=== PATIENT | female | born 1955 | race American Indian/Alaskan Native ===

== ENCOUNTER → 2018-12-07 | Day surgery (SDC) | payer OTHER ==
[2015-09-06 09:48] VITALS: BP 129/68
[~2018-12-07] MED LIST: CALCIUM CITRATE1 TA6 PO; CHANTIX STARTER1 TAB; GOOD SENSE ASPI81 M1 PO; LIP PO; LISINOPRIL5 MG PO; LORAZEPAM0.5 MG PO; NORCO 325 MG-51 TA1 PO; PREDNISONE20 MG PO; VITAMIN D31000 IU PO
== END ==
LOC: MSO 08:59
DX: D12.8 Benign neoplasm of rectum (principal); K63.5 Polyp of colon; K31.89 Other diseases of stomach and duodenum; K21.0 Gastro-esophageal reflux disease with esophagitis; K29.70 Gastritis, unspecified, without bleeding; K29.80 Duodenitis without bleeding; K92.1 Melena; K62.9 Disease of anus and rectum, unspecified; Z86.010 Personal history of colon polyps
CPT/HCPCS: 00813; J2704; J7120

== ENCOUNTER 2018-12-29 09:22 | Emergency (ER) | payer OTHER ==
[~2018-12-29] VITALS: Ht 162.6 cm; Wt 63.6 kg
[2018-12-29] MEDS ORDERED: BENTYL 20MG20 MG/TAB PO (09:41)
[2018-12-29 10:32] VITALS: BP 146/76
== END 2018-12-29 10:33 | disposition home or self-care (01) ==
LOC: ED 09:22
DX: T18.9XXA Foreign body of alimentary tract, part unspecified, initial encounter (principal); I10 Essential (primary) hypertension; K21.9 Gastro-esophageal reflux disease without esophagitis; I51.9 Heart disease, unspecified; C20 Malignant neoplasm of rectum; F17.210 Nicotine dependence, cigarettes, uncomplicated; Z79.82 Long term (current) use of aspirin; Z95.5 Presence of coronary angioplasty implant and graft

== ENCOUNTER → 2019-03-23 | Outpatient (CLI) | payer OTHER ==
[~2019-03-23] MED LIST changes: +BENTYL 20MG20 MG/TAB PO
[2019-03-23 11:04] LABS: EOS # 0.2 (0.04-0.40); EOS % 2.7 % (1.0-5.0); HEMATOCRIT 32.8 % (37.0-47.0); HEMOGLOBIN 10.7 g/dL (12.5-16.0); LYMPH# 1.5 (1.50-4.00); MEAN CELL VOLUME 96 fl (78-100); MEAN CORPUSCULAR HEMOGLOBIN 31 pg (27-31); MEAN CORPUSCULAR HGB CONC 33 g/dL (33-37); MEAN PLATELET VOLUME 11.2 fl (7.4-10.4); MONO # 0.6 (0.20-0.80); NEU # 4.4 (1.40-6.50); PLATELET COUNT 159 K/mm3 (130-400); RED BLOOD COUNT 3.42 M/mm3 (4.10-5.30); RED CELL DISTRIBUTION WIDTH 12.1 % (11.5-14.5); WHITE BLOOD COUNT 6.7 K/mm3 (4.8-10.8)
[2019-03-23 11:12] LABS: ALBUMIN 3.7 g/dL (3.4-4.8)
[2019-03-23 11:13] LABS: POTASSIUM 4.4 mmol/L (3.5-5.1)
[2019-03-23 11:14] LABS: CALCIUM 9.3 mg/dL (8.3-10.5)
[2019-03-23 11:15] LABS: TOTAL PROTEIN 6.2 g/dL (6.2-8.1)
[2019-03-23 11:17] LABS: TOTAL BILIRUBIN 0.8 mg/dL (0.2-1.2)
== END ==
LOC: LAB 10:52
PROVIDERS: Internal Medicine Medical Oncology
DX: C20 Malignant neoplasm of rectum (principal)

== ENCOUNTER → 2019-07-18 | Outpatient (CLI) | payer OTHER ==
[2019-07-18 15:38] LABS: POTASSIUM 4.1 mmol/L (3.5-5.1)
[2019-07-18 15:39] LABS: CALCIUM 8.9 mg/dL (8.3-10.5)
== END ==
LOC: LAB 15:01
PROVIDERS: Internal Medicine Medical Oncology
DX: C20 Malignant neoplasm of rectum (principal)

== ENCOUNTER → 2019-07-25 | Outpatient (CLI) | payer OTHER ==
[2019-07-25 14:27] LABS: EOS # 0.1 (0.04-0.40); EOS % 2.1 % (1.0-5.0); HEMATOCRIT 28.1 % (37.0-47.0); HEMOGLOBIN 8.7 g/dL (12.5-16.0); LYMPH# 1.1 (1.50-4.00); MEAN CELL VOLUME 100 fl (78-100); MEAN CORPUSCULAR HEMOGLOBIN 31 pg (27-31); MEAN CORPUSCULAR HGB CONC 31 g/dL (33-37); MEAN PLATELET VOLUME 10.9 fl (7.4-10.4); MONO # 0.6 (0.20-0.80); NEU # 3.8 (1.40-6.50); PLATELET COUNT 184 K/mm3 (130-400); RED BLOOD COUNT 2.81 M/mm3 (4.10-5.30); RED CELL DISTRIBUTION WIDTH 14.1 % (11.5-14.5); WHITE BLOOD COUNT 5.7 K/mm3 (4.8-10.8)
[2019-07-25 14:35] LABS: ALBUMIN 3.7 g/dL (3.4-4.8)
[2019-07-25 14:36] LABS: POTASSIUM 3.7 mmol/L (3.5-5.1)
[2019-07-25 14:40] LABS: TOTAL BILIRUBIN 0.9 mg/dL (0.2-1.2)
== END ==
LOC: LAB 14:19
PROVIDERS: Internal Medicine Medical Oncology
DX: C20 Malignant neoplasm of rectum (principal)

== ENCOUNTER → 2019-08-05 | Outpatient (CLI) | payer OTHER ==
[2019-08-05 16:26] LABS: CALCIUM 8.6 mg/dL (8.3-10.5)
== END ==
LOC: LAB 15:47
PROVIDERS: Internal Medicine
DX: C20 Malignant neoplasm of rectum (principal)

== ENCOUNTER → 2019-08-11 | Outpatient (CLI) | payer OTHER ==
[2019-08-11 14:36] LABS: POTASSIUM 4.2 mmol/L (3.5-5.1)
[2019-08-11 14:37] LABS: CALCIUM 8.9 mg/dL (8.3-10.5)
== END ==
LOC: LAB 14:06
PROVIDERS: Internal Medicine Medical Oncology
DX: C20 Malignant neoplasm of rectum (principal)

== ENCOUNTER → 2019-08-24 | Outpatient (CLI) | payer OTHER ==
[2019-08-24 15:52] LABS: EOS # 0.1 (0.04-0.40); EOS % 2.4 % (1.0-5.0); MEAN CELL VOLUME 100 fl (78-100); MEAN CORPUSCULAR HEMOGLOBIN 30 pg (27-31); MEAN CORPUSCULAR HGB CONC 30 g/dL (33-37); MEAN PLATELET VOLUME 11.4 fl (7.4-10.4); MONO # 0.5 (0.20-0.80); NEU # 4.1 (1.40-6.50); PLATELET COUNT 188 K/mm3 (130-400); RED BLOOD COUNT 2.99 M/mm3 (4.10-5.30); WHITE BLOOD COUNT 5.8 K/mm3 (4.8-10.8)
[2019-08-24 16:15] LABS: POTASSIUM 3.9 mmol/L (3.5-5.1)
[2019-08-24 16:16] LABS: CALCIUM 9.2 mg/dL (8.3-10.5)
== END ==
LOC: LAB 15:32
PROVIDERS: Internal Medicine Medical Oncology
DX: C20 Malignant neoplasm of rectum (principal)

== ENCOUNTER → 2019-11-23 | Outpatient (CLI) | payer OTHER ==
[2019-11-23 13:45] LABS: HEMATOCRIT 27.9 % (37.0-47.0); HEMOGLOBIN 8.2 g/dL (12.5-16.0); MEAN CELL VOLUME 95 fl (78-100); MEAN CORPUSCULAR HEMOGLOBIN 28 pg (27-31); MEAN PLATELET VOLUME 10.9 fl (7.4-10.4); PLATELET COUNT 200 K/mm3 (130-400); RED BLOOD COUNT 2.94 M/mm3 (4.10-5.30); RED CELL DISTRIBUTION WIDTH 14.9 % (11.5-14.5); WHITE BLOOD COUNT 4.3 K/mm3 (4.8-10.8)
[2019-11-23 13:54] LABS: MEAN CORPUSCULAR HGB CONC 29 g/dL (33-37)
[2019-11-23 13:56] LABS: ALBUMIN 3.6 g/dL (3.4-4.8); POTASSIUM 4.3 mmol/L (3.5-5.1)
[2019-11-23 13:57] LABS: CALCIUM 8.9 mg/dL (8.3-10.5)
[2019-11-23 13:58] LABS: TOTAL PROTEIN 5.7 g/dL (6.2-8.1)
[2019-11-23 14:00] LABS: LYMPHOCYTE 15 % (20-51); MONOCYTE 8 % (3-10); NEUTROPHILS 73 % (42-75); TOTAL BILIRUBIN 0.5 mg/dL (0.2-1.2)
== END ==
LOC: LAB 13:34
PROVIDERS: Internal Medicine Medical Oncology
DX: C20 Malignant neoplasm of rectum (principal)

== ENCOUNTER → 2020-05-23 | Outpatient (CLI) | payer OTHER ==
[2020-05-23 14:43] LABS: EOS # 0.1 (0.04-0.40); EOS % 1.4 % (1.0-5.0); HEMOGLOBIN 11.4 g/dL (12.5-16.0); LYMPH# 0.8 (1.50-4.00); MEAN CELL VOLUME 95 fl (78-100); MEAN CORPUSCULAR HEMOGLOBIN 30 pg (27-31); MEAN CORPUSCULAR HGB CONC 32 g/dL (33-37); MEAN PLATELET VOLUME 10.7 fl (7.4-10.4); MONO # 0.6 (0.20-0.80); NEU # 4.1 (1.40-6.50); PLATELET COUNT 211 K/mm3 (130-400); RED BLOOD COUNT 3.79 M/mm3 (4.10-5.30); RED CELL DISTRIBUTION WIDTH 14.8 % (11.5-14.5); WHITE BLOOD COUNT 5.6 K/mm3 (4.8-10.8)
[2020-05-23 14:47] LABS: ALBUMIN 4.3 g/dL (3.4-4.8); POTASSIUM 4.6 mmol/L (3.5-5.1)
[2020-05-23 14:48] LABS: CALCIUM 9.1 mg/dL (8.3-10.5)
[2020-05-23 14:49] LABS: TOTAL PROTEIN 6.8 g/dL (6.2-8.1)
[2020-05-23 14:51] LABS: TOTAL BILIRUBIN 0.5 mg/dL (0.2-1.2)
== END ==
LOC: LAB 14:17
PROVIDERS: Internal Medicine Medical Oncology
DX: C20 Malignant neoplasm of rectum (principal)

== ENCOUNTER → 2020-09-03 | Outpatient (CLI) | payer OTHER | LOC: LAB 12:01 | DX: Z20.828 Contact with and (suspected) exposure to other viral communicable diseases (principal) ==

== ENCOUNTER → 2020-09-06 | Day surgery (SDC) | payer OTHER | LOC: MSO 09:07 | DX: Z12.11 Encounter for screening for malignant neoplasm of colon (principal); K57.30 Diverticulosis of large intestine without perforation or abscess without bleeding; Z85.048 Personal history of other malignant neoplasm of rectum, rectosigmoid junction, and anus; Z79.82 Long term (current) use of aspirin; Z88.5 Allergy status to narcotic agent; Z88.1 Allergy status to other antibiotic agents; I25.10 Atherosclerotic heart disease of native coronary artery without angina pectoris; F32.9 Major depressive disorder, single episode, unspecified | CPT/HCPCS: G0105; 00812; J1644; J2704; J7120 ==

== ENCOUNTER 2020-11-29 14:40 | Emergency (ER) | payer OTHER ==
[2020-11-29 14:48] VITALS: BP 172/87
== END 2020-11-29 15:24 | disposition home or self-care (01) ==
LOC: ED 14:40
DX: S93.401A Sprain of unspecified ligament of right ankle, initial encounter (principal); E78.5 Hyperlipidemia, unspecified; F17.210 Nicotine dependence, cigarettes, uncomplicated; Z95.9 Presence of cardiac and vascular implant and graft, unspecified; Z88.6 Allergy status to analgesic agent; Z79.82 Long term (current) use of aspirin; X50.1XXA Overexertion from prolonged static or awkward postures, initial encounter; Y92.009 Unspecified place in unspecified non-institutional (private) residence as the place of occurrence of the external cause

== ENCOUNTER → 2022-09-24 | Outpatient (CLI) | payer MEDICARE, OTHER | LOC: LAB 16:04 | DX: Z01.812 Encounter for preprocedural laboratory examination (principal); C20 Malignant neoplasm of rectum; C77.0 Secondary and unspecified malignant neoplasm of lymph nodes of head, face and neck; I10 Essential (primary) hypertension; Z85.528 Personal history of other malignant neoplasm of kidney ==

== ENCOUNTER 2023-05-15 08:55 | Outpatient (RCR) | payer MEDICARE, OTHER ==
[~2023-05-15] VITALS: Ht 162.6 cm; Wt 63.6 kg
[2023-05-15 09:06] VITALS: BP 136/74
[2023-05-15 09:28] LABS: HEMATOCRIT 33.8 % (37.0-47.0); HEMOGLOBIN 10.7 g/dL (12.5-16.0); MEAN CELL VOLUME 100 fl (78-100); MEAN CORPUSCULAR HEMOGLOBIN 32 pg (27-31); MEAN CORPUSCULAR HGB CONC 32 g/dL (33-37); MEAN PLATELET VOLUME 9.4 fl (7.4-10.4); PLATELET COUNT 255 K/mm3 (130-400); RED BLOOD COUNT 3.37 M/mm3 (4.10-5.30); WHITE BLOOD COUNT 5.1 K/mm3 (4.8-10.8)
[2023-05-15 09:57] LABS: ALBUMIN 3.9 g/dL (3.4-4.8); POTASSIUM 4.5 mmol/L (3.5-5.1)
[2023-05-15 09:59] LABS: CALCIUM 8.9 mg/dL (8.3-10.5)
[2023-05-15 10:00] LABS: TOTAL PROTEIN 6.4 g/dL (6.2-8.1)
[2023-05-15 10:02] LABS: TOTAL BILIRUBIN 0.7 mg/dL (0.2-1.2)
[2023-05-15 11:09] LABS: LYMPHOCYTE 10 % (20-51); MONOCYTE 8 % (3-10); NEUTROPHILS 80 % (42-75)
== END 2023-05-21 | disposition home or self-care (01) ==
LOC: AMSURD
PROVIDERS: Internal Medicine Medical Oncology
DX: C34.12 Malignant neoplasm of upper lobe, left bronchus or lung (principal)
CPT/HCPCS: J1644

== ENCOUNTER → 2023-08-21 | Outpatient (CLI) | payer MEDICARE, OTHER ==
[2023-08-21 09:25] LABS: BASO # 0.03 K/mm3 (0.02-0.10); EOS # 0.09 K/mm3 (0.04-0.40); EOS % 1.6 % (1.0-5.0); HEMATOCRIT 35.7 % (37.0-47.0); HEMOGLOBIN 11.8 g/dL (12.5-16.0); LYMPH# 0.79 K/mm3 (1.50-4.00); MEAN CELL VOLUME 97 fl (78-100); MEAN CORPUSCULAR HEMOGLOBIN 32 pg (27-31); MEAN CORPUSCULAR HGB CONC 33 g/dL (33-37); MEAN PLATELET VOLUME 9.9 fl (7.4-10.4); MONO # 0.77 K/mm3 (0.20-0.80); NEU # 4.05 K/mm3 (1.40-6.50); PLATELET COUNT 254 K/mm3 (130-400); RED BLOOD COUNT 3.69 M/mm3 (4.10-5.30); RED CELL DISTRIBUTION WIDTH 13.8 % (11.5-14.5); WHITE BLOOD COUNT 5.8 K/mm3 (4.8-10.8)
[2023-08-21 09:38] LABS: ALBUMIN 4.2 g/dL (3.4-4.8)
[2023-08-21 09:40] LABS: CALCIUM 9.2 mg/dL (8.3-10.5)
[2023-08-21 09:41] LABS: TOTAL PROTEIN 6.7 g/dL (6.2-8.1)
[2023-08-21 09:43] LABS: TOTAL BILIRUBIN 1.1 mg/dL (0.2-1.2)
== END ==
LOC: LAB 08:56
PROVIDERS: Internal Medicine
DX: C34.12 Malignant neoplasm of upper lobe, left bronchus or lung (principal)

== ENCOUNTER 2023-09-18 09:04 | Outpatient (RCR) | payer MEDICARE, OTHER ==
[~2023-09-18] VITALS: Ht 162.6 cm; Wt 63.6 kg
[2023-09-18 09:40] VITALS: BP 121/70
== END 2023-09-20 | disposition still patient (30) ==
LOC: AMSURD
DX: C34.12 Malignant neoplasm of upper lobe, left bronchus or lung (principal)
CPT/HCPCS: J1644

== ENCOUNTER → 2023-09-18 | Outpatient (CLI) | payer MEDICARE, OTHER ==
[2023-09-18 13:35] LABS: HEMATOCRIT 34.8 % (37.0-47.0); HEMOGLOBIN 11.5 g/dL (12.5-16.0); MEAN CELL VOLUME 96 fl (78-100); MEAN CORPUSCULAR HEMOGLOBIN 32 pg (27-31); MEAN CORPUSCULAR HGB CONC 33 g/dL (33-37); MEAN PLATELET VOLUME 10.8 fl (7.4-10.4); PLATELET COUNT 212 K/mm3 (130-400); RED BLOOD COUNT 3.63 M/mm3 (4.10-5.30); RED CELL DISTRIBUTION WIDTH 12.9 % (11.5-14.5); WHITE BLOOD COUNT 3.9 K/mm3 (4.8-10.8)
[2023-09-18 13:40] LABS: CALCIUM 8.9 mg/dL (8.3-10.5)
[2023-09-18 13:41] LABS: TOTAL PROTEIN 6.2 g/dL (6.2-8.1)
[2023-09-18 13:43] LABS: TOTAL BILIRUBIN 0.7 mg/dL (0.2-1.2)
[2023-09-18 16:44] LABS: BAND 1 % (0-10)
[2023-09-18 16:46] LABS: LYMPHOCYTE 16 % (20-51); MONOCYTE 13 % (3-10); NEUTROPHILS 68 % (42-75)
[2023-09-18 16:48] LABS: OVALOCYTES 1+; SCHISTOCYTES 1+
== END ==
LOC: LAB 09:03
PROVIDERS: Internal Medicine Medical Oncology
DX: C34.12 Malignant neoplasm of upper lobe, left bronchus or lung (principal)

== ENCOUNTER 2023-09-26 20:58 | Emergency (ER) | payer MEDICARE, OTHER ==
[~2023-09-26] VITALS: Wt 59.1 kg
[2023-09-26] MEDS ORDERED: WELLBUTRIN XL300 M1 PO (21:16)
[2023-09-26] MEDS ORDERED: PANTOPRAZOLE SO40 MG PO ×2 (21:16→23:09)
[2023-09-26] MEDS ORDERED: VITAMIN C500 M6 PO (21:20)
[2023-09-26] MEDS ORDERED: OSTEO BI-FLEX1 EAC3 PO (21:21)
[2023-09-26] MEDS ORDERED: VITAMIN D250 MC1 PO (21:29)
[2023-09-26] MEDS ORDERED: CELECOXIB200 M1 PO (21:32)
[2023-09-26 23:26] VITALS: BP 151/86
== END 2023-09-26 23:26 | disposition home or self-care (01) ==
LOC: ED 20:58
DX: K21.9 Gastro-esophageal reflux disease without esophagitis (principal); H65.90 Unspecified nonsuppurative otitis media, unspecified ear; I10 Essential (primary) hypertension

== ENCOUNTER → 2023-09-28 | Outpatient (CLI) | payer MEDICARE, OTHER ==
[~2023-09-28] MED LIST changes: +CELECOXIB200 M1 PO; +OSTEO BI-FLEX1 EAC3 PO; +PANTOPRAZOLE SO40 MG PO; +VITAMIN C500 M6 PO; +VITAMIN D250 MC1 PO; +WELLBUTRIN XL300 M1 PO
== END ==
LOC: AMSURD 16:30
DX: K21.9 Gastro-esophageal reflux disease without esophagitis (principal)

== ENCOUNTER 2023-10-16 14:22 | Outpatient (RCR) | payer MEDICARE, OTHER ==
[~2023-10-16] VITALS: Wt 59.1 kg
== END 2023-10-21 | disposition home or self-care (01) ==
LOC: AMSURD
DX: C34.12 Malignant neoplasm of upper lobe, left bronchus or lung (principal)
CPT/HCPCS: J1644

== ENCOUNTER → 2023-10-30 | Outpatient (CLI) | payer MEDICARE, OTHER ==
[2023-10-16 14:57] LABS: HEMATOCRIT 29.5 % (37.0-47.0); HEMOGLOBIN 9.5 g/dL (12.5-16.0); MEAN CELL VOLUME 98 fl (78-100); MEAN CORPUSCULAR HEMOGLOBIN 32 pg (27-31); MEAN CORPUSCULAR HGB CONC 32 g/dL (33-37); MEAN PLATELET VOLUME 10.2 fl (7.4-10.4); PLATELET COUNT 244 K/mm3 (130-400); RED BLOOD COUNT 3.01 M/mm3 (4.10-5.30); RED CELL DISTRIBUTION WIDTH 13.8 % (11.5-14.5); WHITE BLOOD COUNT 4.5 K/mm3 (4.8-10.8)
[2023-10-16 15:06] LABS: CALCIUM 9.4 mg/dL (8.3-10.5)
[2023-10-16 15:07] LABS: TOTAL PROTEIN 6.2 g/dL (6.2-8.1)
[2023-10-16 15:32] LABS: LYMPHOCYTE 13 % (20-51); MONOCYTE 16 % (3-10); NEUTROPHILS 68 % (42-75)
[2023-10-16 15:33] LABS: OVALOCYTES 1+; SCHISTOCYTES 1+
[2023-10-16 15:47] LABS: TOTAL BILIRUBIN 0.4 mg/dL (0.2-1.2)
[2023-10-30 15:44] LABS: HEMOGLOBIN 10.5 g/dL (12.5-16.0); MEAN CELL VOLUME 101 fl (78-100); MEAN CORPUSCULAR HEMOGLOBIN 32 pg (27-31); MEAN CORPUSCULAR HGB CONC 32 g/dL (33-37); MEAN PLATELET VOLUME 11.1 fl (7.4-10.4); PLATELET COUNT 265 K/mm3 (130-400); RED BLOOD COUNT 3.28 M/mm3 (4.10-5.30); RED CELL DISTRIBUTION WIDTH 14.3 % (11.5-14.5); WHITE BLOOD COUNT 4.5 K/mm3 (4.8-10.8)
[2023-10-30 15:48] LABS: ALBUMIN 4.2 g/dL (3.4-4.8)
[2023-10-30 15:50] LABS: CALCIUM 9.2 mg/dL (8.3-10.5)
[2023-10-30 15:51] LABS: TOTAL PROTEIN 6.4 g/dL (6.2-8.1)
[2023-10-30 15:53] LABS: TOTAL BILIRUBIN 0.6 mg/dL (0.2-1.2)
[2023-10-30 16:24] LABS: LYMPHOCYTE 12 % (20-51); MONOCYTE 12 % (3-10); NEUTROPHILS 73 % (42-75)
[2023-10-30 16:26] LABS: HYPOCHROMIA 1+
[2023-10-30 16:27] LABS: OVALOCYTES 1+
== END ==
LOC: LAB 12:05
PROVIDERS: Internal Medicine
DX: C34.12 Malignant neoplasm of upper lobe, left bronchus or lung (principal)

== ENCOUNTER 2023-11-13 09:03 | Outpatient (RCR) | payer MEDICARE, OTHER ==
[2023-10-30 09:16] VITALS: BP 146/74
[~2023-11-13] VITALS: Wt 59.1 kg
== END 2023-11-19 | disposition home or self-care (01) ==
LOC: AMSURD
DX: C34.12 Malignant neoplasm of upper lobe, left bronchus or lung (principal)
CPT/HCPCS: J1644

== ENCOUNTER → 2023-11-13 | Outpatient (CLI) | payer MEDICARE, OTHER ==
[2023-11-13 10:20] LABS: ALBUMIN 4.1 g/dL (3.4-4.8)
[2023-11-13 10:22] LABS: TOTAL PROTEIN 6.4 g/dL (6.2-8.1)
[2023-11-13 10:23] LABS: HEMATOCRIT 31.8 % (37.0-47.0); HEMOGLOBIN 10.1 g/dL (12.5-16.0); MEAN CELL VOLUME 101 fl (78-100); MEAN CORPUSCULAR HEMOGLOBIN 32 pg (27-31); MEAN CORPUSCULAR HGB CONC 32 g/dL (33-37); MEAN PLATELET VOLUME 10.8 fl (7.4-10.4); PLATELET COUNT 244 K/mm3 (130-400); RED BLOOD COUNT 3.15 M/mm3 (4.10-5.30); RED CELL DISTRIBUTION WIDTH 14.1 % (11.5-14.5); WHITE BLOOD COUNT 4.5 K/mm3 (4.8-10.8)
[2023-11-13 10:24] LABS: TOTAL BILIRUBIN 0.5 mg/dL (0.2-1.2)
[2023-11-13 11:26] LABS: LYMPHOCYTE 6 % (20-51); MONOCYTE 12 % (3-10); NEUTROPHILS 79 % (42-75)
[2023-11-13 11:28] LABS: HYPOCHROMIA 1+
[2023-11-13 11:30] LABS: OVALOCYTES 1+; SCHISTOCYTES 1+
== END ==
LOC: LAB 08:58
PROVIDERS: Internal Medicine
DX: C34.12 Malignant neoplasm of upper lobe, left bronchus or lung (principal)

== ENCOUNTER → 2023-12-11 | Outpatient (CLI) | payer MEDICARE, OTHER ==
[2023-12-11 14:22] LABS: HEMATOCRIT 28.7 % (37.0-47.0); HEMOGLOBIN 9.4 g/dL (12.5-16.0); MEAN PLATELET VOLUME 9.7 fl (7.4-10.4); RED BLOOD COUNT 2.88 M/mm3 (4.10-5.30); WHITE BLOOD COUNT 5.1 K/mm3 (4.8-10.8)
[2023-12-11 14:28] LABS: TOTAL PROTEIN 6.2 g/dL (6.2-8.1)
[2023-12-11 14:30] LABS: TOTAL BILIRUBIN 0.6 mg/dL (0.2-1.2)
== END ==
LOC: LAB 13:49
PROVIDERS: Internal Medicine
DX: C34.12 Malignant neoplasm of upper lobe, left bronchus or lung (principal)

== ENCOUNTER → 2024-01-22 | Outpatient (CLI) | payer MEDICARE, OTHER ==
[~2024-01-22] MED LIST changes: +WELLBUTRIN XL150 M2 PO
[2024-01-22 09:43] LABS: HEMATOCRIT 30.6 % (37.0-47.0); HEMOGLOBIN 10.4 g/dL (12.5-16.0); MEAN CELL VOLUME 95 fl (78-100); MEAN CORPUSCULAR HEMOGLOBIN 32 pg (27-31); MEAN CORPUSCULAR HGB CONC 34 g/dL (33-37); MEAN PLATELET VOLUME 9.5 fl (7.4-10.4); PLATELET COUNT 240 K/mm3 (130-400); RED BLOOD COUNT 3.21 M/mm3 (4.10-5.30); RED CELL DISTRIBUTION WIDTH 12.5 % (11.5-14.5); WHITE BLOOD COUNT 5.9 K/mm3 (4.8-10.8)
[2024-01-22 09:48] LABS: ALBUMIN 4.3 g/dL (3.4-4.8)
[2024-01-22 09:50] LABS: CALCIUM 9.5 mg/dL (8.3-10.5)
[2024-01-22 09:51] LABS: TOTAL PROTEIN 6.8 g/dL (6.2-8.1)
[2024-01-22 09:53] LABS: TOTAL BILIRUBIN 0.5 mg/dL (0.2-1.2)
[2024-01-22 10:00] LABS: LYMPHOCYTE 6 % (20-51); MONOCYTE 13 % (3-10); NEUTROPHILS 78 % (42-75)
[2024-01-22 10:01] LABS: HYPOCHROMIA 1+
== END ==
LOC: LAB 08:53
PROVIDERS: Internal Medicine
DX: C34.12 Malignant neoplasm of upper lobe, left bronchus or lung (principal)

== ENCOUNTER 2024-03-04 12:51 | Outpatient (RCR) | payer MEDICARE, OTHER ==
[2023-12-25 11:10] VITALS: BP 155/74
[~2024-03-04] VITALS: Wt 59.1 kg
[~2024-03-04 12:51] MED LIST changes: -24 HOUR NASAL16.9 ML NS; -EMREAL 2.5%-2.1 EACH TP; -IMFINZI500 MG/10 IV; -OSTEO BI-FLEX1 EAC1 PO; -TEMOVATE15 GM TP; -TRAMADOL 50 MG TAB PO; -VALIUM 5MG T5 MG/TAB PO
--- NOTE | 2024-03-04 13:30 | NUR ---
Pt arrived ambulatory for lab draw from port. Accessed left chest portacath with #19gu 1inch Chen needle using sterile technique. Brisk blood return noted. Flushed easily. Wasted 10ml blood, then alma 12ml blood for labs. Flushed with 20ml NS and 5ml Heplock. DC'd Chen needle. Covered site with bandaid. Pt left hospital ambulatory.
[2024-03-04] MEDS ORDERED: TEMOVATE15 GM TP (13:45)
[2024-03-04] MEDS ORDERED: IMFINZI500 MG/10 IV (13:47)
[2024-03-04] MEDS ORDERED: EMREAL 2.5%-2.1 EACH TP (13:50)
[2024-03-04] MEDS ORDERED: OSTEO BI-FLEX1 EAC1 PO (13:52)
[2024-03-04] MEDS ORDERED: TRAMADOL 50 MG TAB PO (13:55)
[2024-03-04] MEDS ORDERED: 24 HOUR NASAL16.9 ML NS (13:57)
[2024-03-04] MEDS ORDERED: VALIUM 5MG T5 MG/TAB PO (13:58)
== END 2024-03-20 | disposition home or self-care (01) ==
LOC: AMSURD
DX: C34.12 Malignant neoplasm of upper lobe, left bronchus or lung (principal)
CPT/HCPCS: J1644

== ENCOUNTER → 2024-03-04 | Outpatient (CLI) | payer MEDICARE, OTHER ==
[~2024-03-04] MED LIST changes: +24 HOUR NASAL16.9 ML NS; +EMREAL 2.5%-2.1 EACH TP; +IMFINZI500 MG/10 IV; +LISINOPRIL20 MG PO; -LISINOPRIL5 MG PO; +OSTEO BI-FLEX1 EAC1 PO; +TEMOVATE15 GM TP; +TRAMADOL 50 MG TAB PO; +VALIUM 5MG T5 MG/TAB PO
[2024-03-04 13:55] LABS: ALBUMIN 3.9 g/dL (3.4-4.8)
[2024-03-04 13:58] LABS: TOTAL PROTEIN 5.9 g/dL (6.2-8.1)
[2024-03-04 14:00] LABS: TOTAL BILIRUBIN 0.5 mg/dL (0.2-1.2)
[2024-03-04 14:35] LABS: HEMATOCRIT 26.8 % (37.0-47.0); HEMOGLOBIN 8.8 g/dL (12.5-16.0); MEAN CELL VOLUME 97 fl (78-100); MEAN CORPUSCULAR HEMOGLOBIN 32 pg (27-31); MEAN CORPUSCULAR HGB CONC 33 g/dL (33-37); MEAN PLATELET VOLUME 10.5 fl (7.4-10.4); PLATELET COUNT 208 K/mm3 (130-400); RED BLOOD COUNT 2.77 M/mm3 (4.10-5.30); RED CELL DISTRIBUTION WIDTH 13.5 % (11.5-14.5); WHITE BLOOD COUNT 4.6 K/mm3 (4.8-10.8)
[2024-03-04 15:08] LABS: LYMPHOCYTE 11 % (20-51); MONOCYTE 16 % (3-10); NEUTROPHILS 69 % (42-75)
[2024-03-04 15:09] LABS: HYPOCHROMIA 2+; OVALOCYTES 1+; SCHISTOCYTES 1+
[2024-03-04 22:49] LABS: HAPTOGLOBIN 185 mg/dL (63-273)
[2024-03-09 14:12] LABS: A/G RATIO (PEP) 1.7 (0.7-1.7); BETA GLOBULINS (PEP) 0.8 g/dL (0.7-1.3)
[2024-03-14 13:04] LABS: PROTEIN TOTAL FOR PEP 5.6
== END ==
LOC: LAB 13:02
PROVIDERS: Internal Medicine
DX: C34.12 Malignant neoplasm of upper lobe, left bronchus or lung (principal)

== ENCOUNTER → 2024-04-01 | Outpatient (CLI) | payer MEDICARE, OTHER ==
[~2024-04-01] MED LIST changes: +24 HOUR NASAL16.9 ML NS; +EMREAL 2.5%-2.1 EACH TP; +IMFINZI500 MG/10 IV; +OSTEO BI-FLEX1 EAC1 PO; +TEMOVATE15 GM TP; +TRAMADOL 50 MG TAB PO; +VALIUM 5MG T5 MG/TAB PO
[2024-04-01 17:12] LABS: HEMATOCRIT 29.2 % (37.0-47.0); HEMOGLOBIN 9.5 g/dL (12.5-16.0); MEAN CELL VOLUME 97 fl (78-100); MEAN CORPUSCULAR HEMOGLOBIN 32 pg (27-31); MEAN CORPUSCULAR HGB CONC 33 g/dL (33-37); MEAN PLATELET VOLUME 9.8 fl (7.4-10.4); PLATELET COUNT 238 K/mm3 (130-400); RED BLOOD COUNT 3.02 M/mm3 (4.10-5.30); RED CELL DISTRIBUTION WIDTH 13.6 % (11.5-14.5); WHITE BLOOD COUNT 8.6 K/mm3 (4.8-10.8)
[2024-04-01 17:23] LABS: TOTAL BILIRUBIN 0.6 mg/dL (0.2-1.2)
[2024-04-01 17:29] LABS: ALBUMIN 4.1 g/dL (3.4-4.8)
[2024-04-01 17:30] LABS: CALCIUM 9.3 mg/dL (8.3-10.5)
[2024-04-01 17:32] LABS: TOTAL PROTEIN 6.5 g/dL (6.2-8.1)
[2024-04-01 18:48] LABS: LYMPHOCYTE 6 % (20-51); MONOCYTE 6 % (3-10); NEUTROPHILS 87 % (42-75)
== END ==
LOC: LAB 12:56
PROVIDERS: Internal Medicine
DX: C34.12 Malignant neoplasm of upper lobe, left bronchus or lung (principal)

== ENCOUNTER → 2024-04-29 | Outpatient (CLI) | payer MEDICARE, OTHER ==
[~2024-04-29] VITALS: Wt 59.1 kg
[2024-04-29 10:00] LABS: HEMOGLOBIN 9.5 g/dL (12.5-16.0); MEAN CELL VOLUME 96 fl (78-100); MEAN CORPUSCULAR HEMOGLOBIN 30 pg (27-31); MEAN CORPUSCULAR HGB CONC 32 g/dL (33-37); MEAN PLATELET VOLUME 10.4 fl (7.4-10.4); PLATELET COUNT 241 K/mm3 (130-400); RED BLOOD COUNT 3.13 M/mm3 (4.10-5.30); WHITE BLOOD COUNT 4.3 K/mm3 (4.8-10.8)
[2024-04-29 10:04] LABS: ALBUMIN 4.1 g/dL (3.4-4.8)
[2024-04-29 10:05] LABS: CALCIUM 9.3 mg/dL (8.3-10.5)
[2024-04-29 10:07] LABS: TOTAL PROTEIN 6.5 g/dL (6.2-8.1)
[2024-04-29 10:17] LABS: LYMPHOCYTE 11 % (20-51); MONOCYTE 13 % (3-10); NEUTROPHILS 75 % (42-75)
[2024-04-29 10:18] LABS: HYPOCHROMIA 1+; OVALOCYTES 1+; SCHISTOCYTES 1+
[2024-04-29 10:42] LABS: TOTAL BILIRUBIN 0.7 mg/dL (0.2-1.2)
== END ==
LOC: LAB 08:51
PROVIDERS: Internal Medicine
DX: C34.12 Malignant neoplasm of upper lobe, left bronchus or lung (principal)
CPT/HCPCS: J1644

== ENCOUNTER → 2024-05-27 | Outpatient (CLI) | payer MEDICARE, OTHER ==
[2023-12-25 11:10] VITALS: BP 155/74
[~2024-05-27] VITALS: Wt 59.1 kg
--- NOTE | 2024-05-27 09:37 | NUR ---
ACCESSED PORTACATH WITH #19GU LUNA NEEDLE. ASPIRATED BLOOD RETURN. ARAM BLOOD FOR LAB. FLUSHED PORT WITH NS AND HEPLOCK PRIOR TO DEACCESSING. PT LOW WELL.
[2024-05-27 09:52] LABS: HEMATOCRIT 29.2 % (37.0-47.0); HEMOGLOBIN 9.6 g/dL (12.5-16.0); MEAN CELL VOLUME 94 fl (78-100); MEAN CORPUSCULAR HEMOGLOBIN 31 pg (27-31); MEAN CORPUSCULAR HGB CONC 33 g/dL (33-37); MEAN PLATELET VOLUME 10.2 fl (7.4-10.4); PLATELET COUNT 260 K/mm3 (130-400); RED CELL DISTRIBUTION WIDTH 13.9 % (11.5-14.5); WHITE BLOOD COUNT 4.6 K/mm3 (4.8-10.8)
[2024-05-27 10:05] LABS: CALCIUM 9.5 mg/dL (8.3-10.5)
[2024-05-27 10:06] LABS: TOTAL PROTEIN 6.4 g/dL (6.2-8.1)
[2024-05-27 10:08] LABS: TOTAL BILIRUBIN 0.5 mg/dL (0.2-1.2)
[2024-05-27 10:40] LABS: NEUTROPHILS 79 % (42-75)
[2024-05-27 10:41] LABS: LYMPHOCYTE 12 % (20-51); MONOCYTE 9 % (3-10)
== END ==
LOC: AMSURD 04-21 00:26 → EDSTATUS 04-29 08:47 → AMSURD 04-29 17:36 → LAB 08:48
PROVIDERS: Internal Medicine
DX: C34.12 Malignant neoplasm of upper lobe, left bronchus or lung (principal)

== ENCOUNTER → 2024-06-24 | Outpatient (CLI) | payer MEDICARE, OTHER ==
[2024-06-24 11:11] LABS: HEMATOCRIT 28.9 % (37.0-47.0); HEMOGLOBIN 9.1 g/dL (12.5-16.0); MEAN CELL VOLUME 95 fl (78-100); MEAN CORPUSCULAR HEMOGLOBIN 30 pg (27-31); MEAN CORPUSCULAR HGB CONC 32 g/dL (33-37); MEAN PLATELET VOLUME 11.5 fl (7.4-10.4); PLATELET COUNT 215 K/mm3 (130-400); RED BLOOD COUNT 3.03 M/mm3 (4.10-5.30); RED CELL DISTRIBUTION WIDTH 13.8 % (11.5-14.5); WHITE BLOOD COUNT 3.8 K/mm3 (4.8-10.8)
[2024-06-24 11:14] LABS: ALBUMIN 3.7 g/dL (3.4-4.8)
[2024-06-24 11:17] LABS: TOTAL PROTEIN 5.9 g/dL (6.2-8.1)
[2024-06-24 11:19] LABS: TOTAL BILIRUBIN 0.4 mg/dL (0.2-1.2)
[2024-06-24 11:47] LABS: BAND 1 % (0-10); LYMPHOCYTE 16 % (20-51); MONOCYTE 13 % (3-10); NEUTROPHILS 69 % (42-75)
== END ==
LOC: LAB 08:41
PROVIDERS: Internal Medicine
DX: C34.12 Malignant neoplasm of upper lobe, left bronchus or lung (principal)

== ENCOUNTER → 2024-08-22 | Outpatient (CLI) | payer MEDICARE, OTHER ==
[~2024-08-22] VITALS: Wt 59.1 kg
[2024-08-22 09:27] LABS: HEMATOCRIT 28.6 % (37.0-47.0); HEMOGLOBIN 9.1 g/dL (12.5-16.0); MEAN CELL VOLUME 94 fl (78-100); MEAN CORPUSCULAR HEMOGLOBIN 30 pg (27-31); MEAN CORPUSCULAR HGB CONC 32 g/dL (33-37); PLATELET COUNT 225 K/mm3 (130-400); RED BLOOD COUNT 3.03 M/mm3 (4.10-5.30); RED CELL DISTRIBUTION WIDTH 14.9 % (11.5-14.5); WHITE BLOOD COUNT 3.4 K/mm3 (4.8-10.8)
[2024-08-22 09:33] LABS: ALBUMIN 4.1 g/dL (3.4-4.8)
[2024-08-22 09:35] LABS: CALCIUM 9.5 mg/dL (8.3-10.5)
[2024-08-22 09:36] LABS: TOTAL PROTEIN 6.6 g/dL (6.2-8.1)
[2024-08-22 09:38] LABS: TOTAL BILIRUBIN 0.4 mg/dL (0.2-1.2)
[2024-08-22 10:05] LABS: LYMPHOCYTE 12 % (20-51); MONOCYTE 18 % (3-10); NEUTROPHILS 69 % (42-75)
== END ==
LOC: LAB 08:51
PROVIDERS: Internal Medicine
DX: C34.12 Malignant neoplasm of upper lobe, left bronchus or lung (principal)

== ENCOUNTER → 2024-09-19 | Outpatient (CLI) | payer MEDICARE, OTHER ==
[~2024-09-19] VITALS: Wt 59.1 kg
[2024-09-19 08:49] VITALS: BP 138/63
[2024-09-19 09:28] LABS: HEMATOCRIT 26.2 % (37.0-47.0); HEMOGLOBIN 8.4 g/dL (12.5-16.0); MEAN CELL VOLUME 94 fl (78-100); MEAN CORPUSCULAR HEMOGLOBIN 30 pg (27-31); MEAN CORPUSCULAR HGB CONC 32 g/dL (33-37); MEAN PLATELET VOLUME 10.4 fl (7.4-10.4); PLATELET COUNT 212 K/mm3 (130-400); RED BLOOD COUNT 2.78 M/mm3 (4.10-5.30); RED CELL DISTRIBUTION WIDTH 15.7 % (11.5-14.5); WHITE BLOOD COUNT 3.7 K/mm3 (4.8-10.8)
[2024-09-19 09:48] LABS: LYMPHOCYTE 11 % (20-51); MONOCYTE 13 % (3-10); NEUTROPHILS 72 % (42-75)
[2024-09-19 10:05] LABS: ALBUMIN 3.5 g/dL (3.4-4.8)
[2024-09-19 10:07] LABS: CALCIUM 8.9 mg/dL (8.3-10.5)
[2024-09-19 10:08] LABS: TOTAL PROTEIN 5.6 g/dL (6.2-8.1)
[2024-09-19 10:10] LABS: TOTAL BILIRUBIN 0.4 mg/dL (0.2-1.2)
== END ==
LOC: LAB 08:21
PROVIDERS: Internal Medicine
DX: C34.12 Malignant neoplasm of upper lobe, left bronchus or lung (principal)

== ENCOUNTER → 2024-10-17 | Outpatient (CLI) | payer MEDICARE, OTHER ==
[2024-10-17 09:31] LABS: HEMOGLOBIN 8.8 g/dL (12.5-16.0); MEAN CELL VOLUME 95 fl (78-100); MEAN CORPUSCULAR HEMOGLOBIN 30 pg (27-31); MEAN CORPUSCULAR HGB CONC 31 g/dL (33-37); MEAN PLATELET VOLUME 11.5 fl (7.4-10.4); PLATELET COUNT 214 K/mm3 (130-400); RED BLOOD COUNT 2.96 M/mm3 (4.10-5.30); RED CELL DISTRIBUTION WIDTH 14.4 % (11.5-14.5); WHITE BLOOD COUNT 4.5 K/mm3 (4.8-10.8)
[2024-10-17 09:53] LABS: ALBUMIN 3.8 g/dL (3.4-4.8)
[2024-10-17 09:55] LABS: CALCIUM 9.5 mg/dL (8.3-10.5)
[2024-10-17 09:56] LABS: TOTAL PROTEIN 6.5 g/dL (6.2-8.1)
[2024-10-17 09:58] LABS: TOTAL BILIRUBIN 0.4 mg/dL (0.2-1.2)
[2024-10-17 10:01] LABS: LYMPHOCYTE 8 % (20-51); MONOCYTE 12 % (3-10); NEUTROPHILS 80 % (42-75)
== END ==
LOC: LAB 08:10
PROVIDERS: Internal Medicine
DX: C34.12 Malignant neoplasm of upper lobe, left bronchus or lung (principal)

== ENCOUNTER → 2024-12-12 | Outpatient (CLI) | payer MEDICARE, OTHER ==
--- NOTE | 2024-12-12 08:33 | NUR ---
LABS DRAWN FROM PORT, HEPARIN FLUSH. BLOOD BROUGHT TO LAB WITH ORDERS.
--- NOTE | 2024-12-12 08:47 | NUR ---
SEGUNDO FROM LAB CALLED THIS RN TO REQUEST NEW DIAGNOSIS CODE FOR TSH. THIS RN UNABLE TO PROVIDE NEW DIAGNOSIS CODE, LAB TO [facility]. SEGUNDO AWARE AND REPORTS SHE WOULD CONTACT THEM.
[2024-12-12 08:55] LABS: BASO # 0.03 K/mm3 (0.02-0.10); EOS # 0.24 K/mm3 (0.04-0.40); EOS % 4.5 % (1.0-5.0); HEMATOCRIT 31.3 % (37.0-47.0); HEMOGLOBIN 9.8 g/dL (12.5-16.0); LYMPH# 0.88 K/mm3 (1.50-4.00); MEAN CELL VOLUME 93 fl (78-100); MEAN CORPUSCULAR HEMOGLOBIN 29 pg (27-31); MEAN CORPUSCULAR HGB CONC 31 g/dL (33-37); MEAN PLATELET VOLUME 10.8 fl (7.4-10.4); NEU # 3.46 K/mm3 (1.40-6.50); PLATELET COUNT 248 K/mm3 (130-400); RED BLOOD COUNT 3.36 M/mm3 (4.10-5.30); RED CELL DISTRIBUTION WIDTH 15.4 % (11.5-14.5); WHITE BLOOD COUNT 5.3 K/mm3 (4.8-10.8)
[2024-12-12 08:58] LABS: ALBUMIN 3.9 g/dL (3.4-4.8)
[2024-12-12 09:00] LABS: CALCIUM 9.1 mg/dL (8.3-10.5)
[2024-12-12 09:01] LABS: TOTAL PROTEIN 6.7 g/dL (6.2-8.1)
[2024-12-12 09:05] LABS: TOTAL BILIRUBIN 0.4 mg/dL (0.2-1.2)
== END ==
LOC: LAB 08:10
PROVIDERS: Internal Medicine
DX: C34.12 Malignant neoplasm of upper lobe, left bronchus or lung (principal)

== ENCOUNTER → 2025-01-09 | Outpatient (CLI) | payer MEDICARE, OTHER ==
--- NOTE | 2025-01-09 09:04 | NUR ---
BLOOD DROPPED OFF WITH ORDER TO LAB AT THIS TIME. AAMIR REPORTS SHE WILL CALL FOR NEXT APPT WHEN SHE RECEIVES ORDERS.
[2025-01-09 09:22] LABS: BASO # 0.02 K/mm3 (0.02-0.10); EOS # 0.11 K/mm3 (0.04-0.40); EOS % 2.4 % (1.0-5.0); HEMATOCRIT 28.9 % (37.0-47.0); HEMOGLOBIN 9.3 g/dL (12.5-16.0); LYMPH# 0.69 K/mm3 (1.50-4.00); MEAN CELL VOLUME 97 fl (78-100); MEAN CORPUSCULAR HEMOGLOBIN 31 pg (27-31); MEAN CORPUSCULAR HGB CONC 32 g/dL (33-37); MEAN PLATELET VOLUME 10.1 fl (7.4-10.4); MONO # 0.59 K/mm3 (0.20-0.80); NEU # 3.12 K/mm3 (1.40-6.50); PLATELET COUNT 236 K/mm3 (130-400); RED BLOOD COUNT 2.99 M/mm3 (4.10-5.30); RED CELL DISTRIBUTION WIDTH 17.4 % (11.5-14.5); WHITE BLOOD COUNT 4.5 K/mm3 (4.8-10.8)
[2025-01-09 09:30] LABS: ALBUMIN 3.7 g/dL (3.4-4.8)
[2025-01-09 09:32] LABS: TOTAL PROTEIN 6.1 g/dL (6.2-8.1)
[2025-01-09 09:34] LABS: TOTAL BILIRUBIN 0.4 mg/dL (0.2-1.2)
== END ==
LOC: LAB 08:36
PROVIDERS: Internal Medicine
DX: C34.12 Malignant neoplasm of upper lobe, left bronchus or lung (principal)